=== PATIENT | female | born 1935 | race Caucasian/White ===

== ENCOUNTER → 2016-12-03 | Outpatient (CLI) | payer OTHER ==
[~2016-12-03] MED LIST: DOXYCYCLINE; ZOLOFT
--- NOTE | ~2016-12-03 | MY29 ---
[facility] A Service [facility] RADIOLOGY TEXT RESULTS PATIENT: JUSTYN MARINELLI LOCATION: [facility] : 37 UNIT #: [id number] AGE: [address]: Jacque Meyer MD SEX: F ORDER DR: [id number] [facility] [address] [place], [place] [address] [id number] O MR#: [id number] Acc #: [id number] NAME: JUSTYN MARINELLI : 1935 SEX: F STUDY DATE/TIME: 12/03/2016 13:21 UNIT: [facility] ROOM: STUDY DESCRIPTION: MY ABENA SCREENING W/ CAD BILAT Attending Physician: Jacque Meyer M.D. Referring Physician: Jacque Meyer M.D. Ordering Physician: Jacque Meyer M.D. Primary Care Physician: Jacque Meyer M.D. MEDICAL IMAGING REPORT This report is preliminary unless electronic signature is present EXAM Digital screening mammogram, 12/03/2016, [facility]. HISTORY 81-year-old woman no risk elevation. Annual screen. COMPARISON Mammograms date to 06/13/2006 with most recent 01/23/2014. FINDINGS Digital imaging of each breast was completed utilizing a two-view examination of each breast in craniocaudal and mediolateral-oblique projections. Review and interpretation of digital mammograms include a second review in conjunction with FDA-approved CAD device. There is a normal parenchymal presentation bilaterally consistent with the patient's age. There are no breast masses imaged and no parenchymal asymmetry is visualized. There are no suspicious microcalcifications and I see no focal architectural disturbance. IMPRESSION Negative screening digital mammogram. One-year followup recommended. Patients over the age of 40 are entered into a reminder system with target due date for the next mammogram. A result letter will also be sent to the patient. BIRADS: 1 Negative Dictated by... Juan Manuel Tena M.D. [facility] A Service [facility] RADIOLOGY TEXT RESULTS PATIENT: JUSTYN MARINELLI LOCATION: [facility] : 37 UNIT #: [id number] AGE: [address]: Jacque Meyer MD SEX: F ORDER DR: THIS IS AN ELECTRONICALLY VERIFIED REPORT Juan Manuel Tena M.D. at 12/03/2016 3:38 PM Nicolas TD: 12/03/2016 15:28 JOB #: [id number] MEDICAL IMAGING REPORT Page 1 of 1 COPY
== END | disposition home or self-care (01) ==
LOC: CWCC 12:59
DX: Z12.31 Encounter for screening mammogram for malignant neoplasm of breast (principal)
CPT/HCPCS: G0202